=== PATIENT | female | born 1980 | race Caucasian/White ===

== ENCOUNTER 2023-02-08 14:16 | Inpatient (IN) | payer OTHER ==
[2023-02-08] MEDS ORDERED: diphenhydrAMINE 50 MG/ML VIAL ONE (15:56)
[2023-02-08] MEDS ORDERED: Ketorolac Tromethamine 30 MG/ML VIAL ONE (15:57)
[2023-02-08] MEDS ORDERED: Metoclopramide HCl 10 MG/2 ML VIAL ONE (15:57)
[2023-02-08 16:20] LABS: #Basophils 0.1 10x3/uL (0.0-0.2); #Eosinphils 0.1 10x3/uL (0.0-0.5); #Monocytes 0.4 10x3/uL (0.0-1.1); #Neutrophils 8.7 10x3/uL (1.5-8.4); %Basophils 0.6 % (0.0-2.0); %Eosinophils 0.6 % (0.0-6.0); %Lymphocytes 14.3 % (18.0-47.0); %Monocytes 3.6 % (0.0-10.0); %Neutrophils 80.6 % (40.0-75.0); Mean Corpuscular HGB CONC 30.2 g/dL (32.0-36.0); Mean Corpuscular Hemoglobin 21.2 pg (27.0-33.0); Mean Corpuscular Volume 70.1 fl (81.6-98.3); Mean Platelet Volume 10.1 fl (7.4-10.4); Platelet Count 466 10x3/uL (150-450); Red Blood Cell (RBC) Count 5.19 10x6/uL (3.90-5.03); White Blood Cell (WBC) Count 10.8 10x3/uL (3.5-10.5)
[2023-02-08 16:30] LABS: BHCG - Serum Negative (NEGATIVE); Pregs Control Background? CLEAR/WHITE (CLR/WHITE); Pregs Control Bar Appear? YES (CONTROL BAR)
[2023-02-08 16:41] LABS: ALT (SGPT) 68 U/L (8-55); AST (SGOT) 107 U/L (5-34); Albumin 4.9 g/dL (3.5-5.0); Alkaline Phosphatase 165 U/L (40-110); Anion Gap 18 mmol/L (10-20); BUN (Urea Nitrogen) 13 mg/dL (7.0-18.7); Bilirubin, Total 0.4 mg/dL (0.2-1.2); Calc. Creatinine Clearance 0 mL/min (70-130); Calcium 10.4 mg/dL (7.8-10.44); Carbon Dioxide 17 mmol/L (22-29); Chloride 107 mmol/L (98-107); Estimated GFR 77; Globulin 3.6 g/dL (2.4-3.5); Glucose 98 mg/dL (70-105); Potassium 4.5 mmol/L (3.5-5.1); Protein, Total 8.5 g/dL (6.0-8.3); Sodium 137 mmol/L (136-145)
[2023-02-08] MEDS ORDERED: Magnesium 2 GM/50 ML BAG (IN WATER) ONE (17:53)
[2023-02-08] MEDS ORDERED: methylPREDNISolone Sod Succ/PF 125 MG/2 ML VIAL ONE (17:53)
[2023-02-08] MEDS ORDERED: Labetalol HCl 100 MG/20 ML VIAL ONE (19:36)
[2023-02-08 20:48] LABS: Magnesium 2.5 mg/dL (1.6-2.6)
[2023-02-08 21:12] VITALS: BMI 25.7
[2023-02-08 21:39] LABS: SARS-CoV-2 NAA Rapid Test DETECTED (NotDetected)
[2023-02-08] MEDS: Labetalol HCl 200 MG, Admixture Fee 1 EACH in Sodium Chloride 0.9% 250 ML 160 ML IVPB SCH (21:52)
[2023-02-08] MEDS ORDERED: Lidocaine 1% (PF) 30 ML VIAL ONE (22:45)
[2023-02-08] MEDS: Morphine 4 MG/ML VIAL SLOW IVP PRN (23:49)
[2023-02-09] MEDS: Labetalol HCl 200 MG, Admixture Fee 1 EACH in Sodium Chloride 0.9% 250 ML 160 ML IVPB SCH ×3 (01:57→09:38)
[2023-02-09] MEDS ORDERED: diphenhydrAMINE 25 MG CAP PO SCH ×2 (03:45→11:15)
[2023-02-09 04:23] LABS: #Monocytes 0.1 10x3/uL (0.0-1.1); #Neutrophils 6.9 10x3/uL (1.5-8.4); %Basophils 0.1 % (0.0-2.0); %Lymphocytes 8.6 % (18.0-47.0); %Monocytes 1.3 % (0.0-10.0); %Neutrophils 89.6 % (40.0-75.0); Hemoglobin 10.2 g/dL (12.0-15.5); Mean Corpuscular HGB CONC 29.5 g/dL (32.0-36.0); Mean Corpuscular Volume 71.2 fl (81.6-98.3); Mean Platelet Volume 10.2 fl (7.4-10.4); Platelet Count 384 10x3/uL (150-450); RBC Distribution Width 16.7 % (11.5-14.5); Red Blood Cell (RBC) Count 4.86 10x6/uL (3.90-5.03); White Blood Cell (WBC) Count 7.7 10x3/uL (3.5-10.5)
[2023-02-09 04:35] LABS: Anion Gap 18 mmol/L (10-20); BUN (Urea Nitrogen) 13 mg/dL (7.0-18.7); Calc. Creatinine Clearance 81 mL/min (70-130); Carbon Dioxide 15 mmol/L (22-29); Chloride 109 mmol/L (98-107); Estimated GFR 87; Glucose 150 mg/dL (70-105); Potassium 4.5 mmol/L (3.5-5.1); Sodium 137 mmol/L (136-145)
[2023-02-09] MEDS ORDERED: SUMAtriptan Succinate 50 MG TAB PO SCH (05:30)
[2023-02-09] MEDS: Morphine 4 MG/ML VIAL SLOW IVP PRN (06:28)
[2023-02-09] MEDS ORDERED: Venlafaxine 75 MG TAB PO SCH (09:00)
[2023-02-09] MEDS: Lidocaine 4% Patch TD SCH (09:38)
[2023-02-09] MEDS ORDERED: traZODone HCl 50 MG TAB PO PRN (10:07)
[2023-02-09] MEDS ORDERED: Lisinopril 20 MG TAB PO SCH (10:45)
[2023-02-09] MEDS ORDERED: diphenhydrAMINE 50 MG CAP PO PRN (11:41)
[2023-02-09] MEDS ORDERED: diphenhydrAMINE 50 MG/ML VIAL IVP SCH (17:00)
[2023-02-09] MEDS: hydrALAZINE 20 MG/ML VIAL SLOW IVP PRN (17:35)
[2023-02-09] MEDS ORDERED: Labetalol HCl 100 MG/20 ML VIAL SLOW IVP SCH (20:00)
[2023-02-09] MEDS: LIDOCAINE Patch Removal TOP SCH (22:03)
[2023-02-09] MEDS ORDERED: Ondansetron PF 4 MG/2 ML Vial IVP SCH (23:15)
[2023-02-10] MEDS ORDERED: diphenhydrAMINE 50 MG/ML VIAL IVP SCH (01:45)
[2023-02-10 03:30] LABS: #Basophils 0.1 10x3/uL (0.0-0.2); #Eosinphils 0.1 10x3/uL (0.0-0.5); #Monocytes 0.8 10x3/uL (0.0-1.1); #Neutrophils 8.2 10x3/uL (1.5-8.4); %Basophils 0.6 % (0.0-2.0); %Eosinophils 0.5 % (0.0-6.0); %Lymphocytes 24.5 % (18.0-47.0); %Monocytes 6.7 % (0.0-10.0); %Neutrophils 67.5 % (40.0-75.0); Hemoglobin 10.3 g/dL (12.0-15.5); Mean Corpuscular Hemoglobin 20.9 pg (27.0-33.0); Mean Corpuscular Volume 69.7 fl (81.6-98.3); Platelet Count 495 10x3/uL (150-450); RBC Distribution Width 16.9 % (11.5-14.5); Red Blood Cell (RBC) Count 4.92 10x6/uL (3.90-5.03); White Blood Cell (WBC) Count 12.2 10x3/uL (3.5-10.5)
[2023-02-10 03:43] LABS: Anion Gap 16 mmol/L (10-20); BUN (Urea Nitrogen) 16 mg/dL (7.0-18.7); Calc. Creatinine Clearance 80 mL/min (70-130); Calcium 10.6 mg/dL (7.8-10.44); Carbon Dioxide 19 mmol/L (22-29); Chloride 109 mmol/L (98-107); Estimated GFR 86; Glucose 105 mg/dL (70-105); Potassium 3.8 mmol/L (3.5-5.1); Sodium 140 mmol/L (136-145)
[2023-02-10] MEDS: hydrALAZINE 25 MG TAB PO SCH ×3 (09:16→20:07)
[2023-02-10] MEDS: diphenhydrAMINE 25 MG CAP PO SCH ×2 (09:17→09:30)
[2023-02-10] MEDS: Lisinopril 20 MG TAB PO SCH (09:17)
[2023-02-10] MEDS: lamoTRIgine 25 MG TAB PO SCH (09:18)
[2023-02-10] MEDS: Venlafaxine XR 37.5 MG CAP PO SCH (09:18)
[2023-02-10] MEDS: Lidocaine 4% Patch TD SCH (09:19)
[2023-02-10] MEDS: SUMAtriptan Succinate 50 MG TAB PO PRN ×2 (09:36→22:56)
[2023-02-10] MEDS: Sodium Chloride 0.9% 1,000 ML IV SCH ×2 (09:38→20:06)
[2023-02-10] MEDS: hydrALAZINE 20 MG/ML VIAL SLOW IVP PRN ×2 (11:30→23:49)
[2023-02-10 11:42] LABS: ALT (SGPT) 36 U/L (8-55); AST (SGOT) 37 U/L (5-34); Albumin 4.5 g/dL (3.5-5.0); Alkaline Phosphatase 122 U/L (40-110); Bilirubin, Direct 0.2 mg/dL (0.1-0.3); Bilirubin, Total 0.5 mg/dL (0.2-1.2); Protein, Total 7.9 g/dL (6.0-8.3)
[2023-02-10] MEDS: cefTRIAXone\\ROCEPHIN 1 GM in Sodium Chloride 0.9% 100 ML IVPB SCH (12:03)
[2023-02-10] MEDS ORDERED: Iopamidol 300 61% 100 ML VIAL FS ONE (12:07)
[2023-02-10] MEDS ORDERED: ALPRAZolam 0.5 MG TAB PO SCH (12:15)
[2023-02-10 12:23] LABS: Bilirubin Neg (Negative); Blood, Urine 150 (Negative); Clarity Cloudy (Clear); Glucose, Urine (Dipstick) Normal (Negative); Ketone, Urine Negative (Negative); Leukocyte 500 (Negative); Nitrite Negative (Negative); Protein, Urine (Dipstick) 30 mg/dl (Neg-Trace); Specific Gravity, Urine 1.025 (1.005-1.030); Urobilinogen Normal mg/dL (Less than 2)
[2023-02-10 12:31] LABS: Bacteria/HPF 2+ HPF (None Seen); CAUTI Indications for Culture Pelvic or flank pain; RBC/HPF 0-3 HPF (0-3); Squamous Epithelial Greater than 50 HPF (0-3)
[2023-02-10 12:33] LABS: Urine Culture Reflex No No
[2023-02-10] MEDS: Ondansetron PF 4 MG/2 ML Vial IVP PRN ×2 (12:57→23:54)
[2023-02-10] MEDS ORDERED: traZODone HCl 50 MG TAB PO ONE (14:58)
[2023-02-10] MEDS ORDERED: traMADol HCl 50 MG TAB PO PRN (16:37)
[2023-02-10] MEDS: LIDOCAINE Patch Removal TOP SCH (20:25)
[2023-02-10] MEDS ORDERED: diphenhydrAMINE 25 MG CAP PO SCH (22:45)
[2023-02-11] MEDS ORDERED: Lorazepam 2 MG/ML VIAL SLOW IVP SCH (01:00)
[2023-02-11] MEDS ORDERED: Sodium Chloride 0.9% 500 ML IV SCH (03:45)
[2023-02-11 04:23] LABS: #Basophils 0.1 10x3/uL (0.0-0.2); #Eosinphils 0.2 10x3/uL (0.0-0.5); #Monocytes 0.6 10x3/uL (0.0-1.1); #Neutrophils 3.8 10x3/uL (1.5-8.4); %Basophils 0.7 % (0.0-2.0); %Eosinophils 2.3 % (0.0-6.0); %Lymphocytes 35.2 % (18.0-47.0); %Monocytes 8.5 % (0.0-10.0); %Neutrophils 52.9 % (40.0-75.0); Hemoglobin 8.6 g/dL (12.0-15.5); Mean Corpuscular HGB CONC 29.4 g/dL (32.0-36.0); Mean Corpuscular Hemoglobin 20.9 pg (27.0-33.0); Mean Corpuscular Volume 71.3 fl (81.6-98.3); Platelet Count 377 10x3/uL (150-450); RBC Distribution Width 16.6 % (11.5-14.5); Red Blood Cell (RBC) Count 4.11 10x6/uL (3.90-5.03); White Blood Cell (WBC) Count 7.3 10x3/uL (3.5-10.5)
[2023-02-11 04:42] LABS: ALT (SGPT) 26 U/L (8-55); AST (SGOT) 23 U/L (5-34); Albumin 3.3 g/dL (3.5-5.0); Alkaline Phosphatase 88 U/L (40-110); Anion Gap 14 mmol/L (10-20); BUN (Urea Nitrogen) 13 mg/dL (7.0-18.7); Bilirubin, Total 0.3 mg/dL (0.2-1.2); Calc. Creatinine Clearance 69 mL/min (70-130); Calcium 9.1 mg/dL (7.8-10.44); Carbon Dioxide 16 mmol/L (22-29); Chloride 113 mmol/L (98-107); Estimated GFR 73; Globulin 2.6 g/dL (2.4-3.5); Glucose 112 mg/dL (70-105); Potassium 3.5 mmol/L (3.5-5.1); Protein, Total 5.9 g/dL (6.0-8.3); Sodium 139 mmol/L (136-145)
[2023-02-11] MEDS: lamoTRIgine 25 MG TAB PO SCH (09:56)
[2023-02-11] MEDS: Lidocaine 4% Patch TD SCH (09:56)
[2023-02-11] MEDS: Venlafaxine XR 37.5 MG CAP PO SCH (09:57)
[2023-02-11] MEDS: diphenhydrAMINE 25 MG CAP PO SCH (10:04)
[2023-02-11] MEDS: hydrALAZINE 25 MG TAB PO SCH ×3 (10:05→20:19)
[2023-02-11] MEDS: Lisinopril 20 MG TAB PO SCH (10:06)
[2023-02-11 10:47] LABS: Iron 16 ug/dL (50-170); Iron Binding Capacity, Total 319 mcg/dL (265-497)
[2023-02-11] MEDS: Sodium Chloride 0.9% 1,000 ML IV SCH (11:03)
[2023-02-11] MEDS: cefTRIAXone\\ROCEPHIN 1 GM in Sodium Chloride 0.9% 100 ML IVPB SCH (11:50)
[2023-02-11 12:17] VITALS: TEMP 97.4
[2023-02-11] MEDS: LIDOCAINE Patch Removal TOP SCH (20:19)
[2023-02-12] MEDS: Lisinopril 20 MG TAB PO SCH (08:35)
[2023-02-12] MEDS: hydrALAZINE 25 MG TAB PO SCH (08:36)
[2023-02-12] MEDS: Venlafaxine XR 37.5 MG CAP PO SCH (08:38)
[2023-02-12] MEDS: lamoTRIgine 25 MG TAB PO SCH (08:38)
[2023-02-12 08:40] VITALS: BP 139/76
[2023-02-12] MEDS: Lidocaine 4% Patch TD SCH (08:50)
[2023-02-12] MEDS: diphenhydrAMINE 25 MG CAP PO SCH (09:12)
[2023-02-12 09:32] LABS: Hemoglobin 9.1 g/dL (12.0-15.5)
[2023-02-13] MEDS ORDERED: Ferrous Sulfate 325 MG TAB PO SCH (08:00)
[2023-02-14 04:12] LABS: Metanephrine,Plasma 59.9 pg/mL (0.0-88.0)
== END 2023-02-12 11:55 | disposition home or self-care (01) | DRG 305 ==
LOC: CSHERS 14:16 → CSHICU 20:48
PROVIDERS: ADMIT Family Medicine; ATTEND Internal Medicine
PROC: 05HN33Z Insertion of Infusion Device into Left Internal Jugular Vein, Percutaneous Approach (ICD-10-PCS; principal; 2023-02-08)
PROC: B544ZZA Ultrasonography of Left Jugular Veins, Guidance (ICD-10-PCS; 2023-02-08)
DX: I16.1 Hypertensive emergency (principal); E78.5 Hyperlipidemia, unspecified; K21.9 Gastro-esophageal reflux disease without esophagitis; G43.109 Migraine with aura, not intractable, without status migrainosus; F41.9 Anxiety disorder, unspecified; F32.A Depression, unspecified; E83.52 Hypercalcemia; R74.01 Elevation of levels of liver transaminase levels; D50.9 Iron deficiency anemia, unspecified; Z88.8 Allergy status to other drugs, medicaments and biological substances; Z98.890 Other specified postprocedural states; Z90.49 Acquired absence of other specified parts of digestive tract; Z90.89 Acquired absence of other organs; Z98.84 Bariatric surgery status; Z82.49 Family history of ischemic heart disease and other diseases of the circulatory system; Z79.899 Other long term (current) drug therapy; Z83.79 Family history of other diseases of the digestive system
CPT/HCPCS: 36415; 70450; 71045; 74160; 76705; 76770; 80048; 80053; 80076; 81001; 82088; 83540; 83550; 83735; 83835; 83970; 84244; 84443; 84484; 84703; 85018; 85025; 93005; 93010; 93306; 93976; 94760; 94762; 96365; 96367; 96375; J0360; J0696; J1200; J1650; J1885; J2060; J2270; J2405; J2765; J2930; J3475; J3490; J7030; J7050; Q9967; U0002